=== PATIENT | male | born 1990 | race Caucasian/White ===

== ENCOUNTER 2018-04-05 07:14 | Day surgery (SDC) | payer OTHER ==
[2018-04-05] MEDS ORDERED: Sodium Chloride 0.9% 10 ML Syringe FLUSH PRN (07:30)
[2018-04-05] MEDS ORDERED: Lactated Ringers 1,000 ML IV SCH (07:30)
[2018-04-05] MEDS ORDERED: Glycopyrrolate 0.2 MG/ML 5 ML MDV IV ONE (09:30)
[2018-04-05] MEDS ORDERED: Propofol 200 MG/20 ML SDV IV ONE (09:30)
[2018-04-05] MEDS ORDERED: Simethicone Drops 40 MG/0.6 ML 30 ML Bottle ONE (09:44)
--- NOTE | 2018-04-05 10:02 | PCM.OPNOTE ---
- General Post-Op/Procedure Note Date of Surgery/Procedure: 04/05/18 Operative Procedure(s): c scope with bx Findings: right post hemorrhoid Pre Op Diagnosis: hematochezia Post-Op Diagnosis: internal hemorrhoid Anesthesia Technique: MAC Primary Surgeon: Gurjit Potts Anesthesia Provider: Sanjeev Noriega Pathology: none Complications: None Condition: Good Free Text/Narrative:: see dictation
--- NOTE | 2018-04-05 12:16 | OR ---
DATE OF OPERATION: 04/05/2018 SURGEON: Gurjit Potts MD PROCEDURES PERFORMED: Colonoscopy and hemorrhoidal banding. PREOPERATIVE DIAGNOSIS: Hematochezia. POSTOPERATIVE DIAGNOSIS: Right posterior hemorrhoid. INDICATIONS FOR PROCEDURE: This is a 27-year-old white male who has had a history of hematochezia. He was offered and accepted colonoscopy as well as banding if indicated. DESCRIPTION OF PROCEDURE: After an excellent IV sedation was administered, digital rectal exam was performed. No marked abnormality was noted. Flexible colonoscope was inserted and advanced to the cecum without difficulty. The prep was excellent. The following findings were noted. Ascending colon, unremarkable. Transverse colon, unremarkable. Descending colon, unremarkable. Sigmoid, unremarkable. Rectum, unremarkable. On retroflexing the scope, there was some evidence of internal hemorrhoids. After removing the colonoscope, the anoscope was inserted. Left lateral and right posterior positions were essentially unremarkable. He did appear to have a grade-2 hemorrhoid at the right posterior position, and this was banded without difficulty. The patient was taken to Recovery in a good condition. /[id number] /[id number]
== END 2018-04-05 11:05 | disposition home or self-care (01) ==
LOC: FB.SDS 07:14
PROVIDERS: ATTEND Surgery
DX: K64.1 Second degree hemorrhoids (principal); Z87.891 Personal history of nicotine dependence; F41.9 Anxiety disorder, unspecified; F32.9 Major depressive disorder, single episode, unspecified; Z91.048 Other nonmedicinal substance allergy status; Z79.899 Other long term (current) drug therapy
CPT/HCPCS: 45378; 46221; A9270; J2704; J7120